=== PATIENT | female | born 1950 | race American Indian/Alaskan Native ===

== ENCOUNTER 2025-02-08 14:07 | Emergency (ER) | payer OTHER, SELFPAY ==
[2025-02-08 14:09] VITALS: BP 185/102
--- NOTE | 2025-02-08 14:37 | ED.GENMED ---
History of Present Illness
General
Chief Complaint: Fall
Time Seen by Provider: 02/08/25 14:27
History of Present Illness
History of Present Illness:
74-year-old female with history of hypertension and prior stroke presents to the emergency department for evaluation after a fall. She tripped and fell while carrying objects inside her home. Did strike her head on the ground, denies LOC or
vomiting since that time. Injury occurred approximately 2 to 3 hours ago. She is complaining of severe headache and right wrist pain as well. Denies neck or back pain.
Review of Systems
Review of Systems
Allergies reviewed?: Yes
All Other Systems: ROS reviewed and negative except as documented in HPI and ROS
Phy Exam
Physical Exam
Physical Exam:
GEN: Well appearing, NAD, WDWN
HEENT: Moderate hematoma to the right forehead extending to the orbital ridge, extraocular motions intact in all may with no gaze deficit, oral mucosa moist, no scleral icterus
Cardiac: Regular rate
Lung: No respiratory distress, no tachypnea
MSK: No midline C/T/L-spine tenderness. Swelling and ecchymosis with subtle deformity to the right wrist, neurovascularly intact distal to the injury. Able to ambulate, pelvis stable
Skin: Good color, no pallor or jaundice, no rashes
Neuro: AO x3, moves all extremities freely
Psych: Calm, cooperative
Course
Orders/Labs/Results
Orders:
Orders
02/08/25 14:36
CT Facial Bones W/o Iv Contras Urgent
Comment:
Reason For Exam: fall
CT Head W/o Iv Contrast Urgent
Comment:
Reason For Exam: fall
CR Wrist - Right Min 3 Views Urgent
Comment:
Reason For Exam: fall
02/08/25 15:36
Acetaminophen [Tylenol] 1,000 mg PO NOW STA
02/08/25 16:46
CR Wrist - Right Min 2 Views Urgent
Comment:
Reason For Exam: post reduction
Vital Signs
Initial and Last Documented VS:
Initial Vital Signs
Temp Pulse Resp BP Pulse Ox
97.7 F 103 18 185/102 98
02/08/25 14:09 02/08/25 14:09 02/08/25 14:09 02/08/25 14:09 02/08/25 14:09
Last Documented Vital Signs
Temp Pulse Resp BP Pulse Ox
97.7 F 87 16 129/79 99
02/08/25 14:09 02/08/25 18:13 02/08/25 18:13 02/08/25 18:13 02/08/25 18:13
Procedures
Joint/Fracture Reduction
R Wrist:
Indication for procedure:: Displaced distal radius fracture
Procedure completed by: Jose Raul Mcgrath PA-C
Joint reduced: without anesthesia
Anesthesia/sedation: 1% Lidocaine (w/ 0.5% bupivacaine) and Injection to joint space
Injury was: closed
Further treatement: needs further treatment
Post reduction exam: stable
Capillary Refill: normal
Normal distal neurovascular exam?: Yes
MDM/Problems Addressed
MDM/Problems Addressed:
CT of the head and facial bones obtained to evaluate for intracranial hemorrhage or facial fracture as a result of her fall particularly given her use of antiplatelet agents. She was noted to have a distal radius fracture that required closed
reduction at the bedside, postreduction films show improved anatomic alignment. Sugar-tong splint applied by myself with good neurovascular status after the procedure. Outpatient Ortho follow-up discussed
*Pulse Oximetry
SaO2: 98
Oxygen Mode of Delivery: Room air
Patient hypoxic: no
*Critical Care Note
Total Time (30-74mins, 75-104mins- exclusive of procedures): Not Applicable
ED Attending Note
-
Portions of this chart may have been created with voice recognition software.� Occasional wrong word or��sound alike� substitutions may have occurred due to the inherent limitations of voice recognition software.
Discharge Plan
Departure
Patient Disposition: Home (Routine Discharge)
Date of Disposition: 02/08/25
Time of Disposition: 18:00
Patient with high blood pressure during this ER visit?: No
Discharge Problem:
Distal radius fracture, right, Traumatic hematoma of forehead
Instructions: Wrist Fracture
Referrals:
Ge Green MD [Active, Orthopedics]
Mine Owen MD [Family Provider, Family Practice]
Activity Restrictions/Additional Instructions:
Follow up with Orthopedics for re-evaluation of your wrist fracture
Interventions
Interventions:
*Risk Screen - Suicide Last Done: 02/08/25 14:40
*General Assessment Last Done: 02/08/25 14:40
*Neglect/Abuse Screening Last Done: 02/08/25 14:40
*ED- Fall Risk Assessment Last Done: 02/08/25 14:37
*ED COVID-19 Vaccine History Last Done: 02/08/25 14:40
*ED Influenza Vaccine History Last Done: 02/08/25 14:40
*Nursing Disposition Last Done: 02/08/25 18:14
ED-Musculoskeletal Assessment Last Done: 02/08/25 14:41
ED- Neurological Assessment Last Done: 02/08/25 14:42
ED-Skin Assessment Last Done: 02/08/25 14:42
Discharge Date and Time
Discharge Date/Time: 02/08/25 18:15
Print Language: KOREAN
[2025-02-08 14:40] VITALS: BMI 23.0
[2025-02-08] MEDS: TYLENOL 1000 MG PO (15:55)
[2025-02-08 16:00] VITALS: BP 138/82
[2025-02-08 18:13] VITALS: BP 129/79
== END 2025-02-08 18:15 | disposition home or self-care (01) ==
LOC: EMR 14:07
PROVIDERS: EMERGENCY PHYSICIAN Emergency Medicine; FAMILY PHYSICIAN Family Medicine
DX: S52.501A Unspecified fracture of the lower end of right radius, initial encounter for closed fracture (principal); S00.83XA Contusion of other part of head, initial encounter; I10 Essential (primary) hypertension; W01.198A Fall on same level from slipping, tripping and stumbling with subsequent striking against other object, initial encounter; Y93.01 Activity, walking, marching and hiking; Y92.008 Other place in unspecified non-institutional (private) residence as the place of occurrence of the external cause; Z86.73 Personal history of transient ischemic attack (TIA), and cerebral infarction without residual deficits
CPT/HCPCS: 99284; 25605; 70450; 70486; 73100; 73110